=== PATIENT | male | born 1985 | race Two or more races ===

== ENCOUNTER 2017-08-14 21:35 | Emergency (ER) | payer SELFPAY ==
[2017-08-14 21:41] VITALS: BMI 26.9
--- NOTE | 2017-08-14 21:44 | PDOC ---
Rapid Medical Evaluation Time Seen by Provider: 08/14/17 21:38 Medical Evaluation: 08/14/17 21:39 The patient presents with a chief complaint of: Stomach pain for 2 days. Points to middle for stomach pain. admits to nausea, vomiting. Admits drinking, 2 drinks yesterday, smokes synthetic TCH daily I have performed a brief in-person evaluation of this patient; Pertinent physical exam findings: TTP epigastric region I have ordered the following: CBC, CMP, Lipase, Pt/INR,. UA, UC The patient will proceed to the ED for further evaluation.
[2017-08-14 22:01] LABS: BASO % 0.4 % (0-2.0); EOS % 3.2 % (0-4.5); HEMATOCRIT 52.2 % (35.4-49); HEMOGLOBIN 17.5 GM/dL (11.7-16.9); LYMPH % 10.4 % (8-40); MCH 29.1 pg (25.7-33.7); MCHC 33.4 g/dl (32.0-35.9); MEAN CELL VOLUME 86.9 fl (80-96); MEAN PLT VOLUME 9.1 fl (7.5-11.1); PLATELET COUNT 163 K/MM3 (134-434); RBC 6.01 M/mm3 (4.00-5.60); RDW 12.8 % (11.9-15.9); WHITE BLOOD COUNT 9.5 K/mm3 (4.0-10.0)
[2017-08-14 22:09] LABS: URINE APPEARANCE CLOUDY; URINE BILIRUBIN NEGATIVE (NEGATIVE); URINE BLOOD NEGATIVE (NEGATIVE); URINE COLOR AMBER; URINE GLUCOSE (UA) NEGATIVE (NEGATIVE); URINE KETONE NEGATIVE (NEGATIVE); URINE LEUK ESTERASE NEGATIVE (NEGATIVE); URINE NITRITE NEGATIVE (NEGATIVE)
[2017-08-14 22:12] LABS: INR 1.05 (0.82-1.09); PROTHROMBIN TIME (PATIENT) 11.9 SEC (9.98-11.88)
[2017-08-14 22:12] LABS: URINE PROTEIN 1+ (NEGATIVE)
[2017-08-14 22:14] LABS: EPI CELLS RARE /HPF (FEW); URINE MUCUS RARE
[2017-08-14] MEDS ORDERED: SODIUM CHLORIDE 1,000 ML IV STA ×2 (22:24→23:02)
[2017-08-14] MEDS ORDERED: ONDANSETRON 4 MG/2 ML VIAL IVPUSH ONE (22:24)
[2017-08-14 22:26] LABS: ALBUMIN 4.1 g/dl (3.4-5.0); ANION GAP 5 (8-16); BLOOD UREA NITROGEN 18 mg/dL (7-18); CALCIUM 9.3 mg/dL (8.5-10.1); CHLORIDE 103 mmol/L (98-107); CO2 31 mmol/L (21-32); CREATININE 1.1 mg/dL (0.7-1.3); GLUCOSE,RANDOM 77 mg/dL (74-106); SGOT/AST 15 U/L (15-37); SGPT/ALT 32 U/L (12-78); SODIUM 139 mmol/L (136-145)
[2017-08-14] MEDS ORDERED: FAMOTIDINE IV 20 MG/12 ML VIAL IVPB ONE (22:26)
--- NOTE | 2017-08-14 22:28 | PDOC ---
History of Present Illness - General Chief Complaint: Pain Stated Complaint: VOMITING, ABDOMINAL PAIN Time Seen by Provider: 08/14/17 21:38 Past History - Past Medical History Allergies/Adverse Reactions: Allergies Allergy/AdvReac Type Severity Reaction Status Date / Time No Known Allergies Allergy Verified 08/14/17 21:42 Home Medications: Ambulatory Orders Ondansetron [Zofran Odt -] 4 mg SL TID #10 od.tablet 08/15/17 COPD: No - Suicide/Smoking/Psychosocial Hx Smoking History: Never smoked Have you smoked in the past 12 months: No Information on smoking cessation initiated: No Hx Alcohol Use: Yes Drug/Substance Use Hx: No Substance Use Type: Alcohol *Physical Exam - Vital Signs Last Vital Signs Temp Pulse Resp BP Pulse Ox 97.6 F 78 20 140/74 97 08/14/17 21:38 08/14/17 21:38 08/14/17 21:38 08/14/17 21:38 08/14/17 21:38 ED Treatment Course - LABORATORY CBC & Chemistry Diagram: 08/14/17 21:50 08/14/17 21:50 - ADDITIONAL ORDERS Additional order review: Laboratory Results 08/14/17 08/14/17 22:00 21:50 Lipase 69 L Urine Color Heide Urine Appearance Cloudy Urine pH 7.0 Ur Specific Catarina 1.029 Urine Protein 1+ H Urine Glucose (UA) Negative Urine Ketones Negative Urine Blood Negative Urine Nitrite Negative Urine Bilirubin Negative Urine Urobilinogen 2.0 Urine WBC (Auto) 7 Urine RBC (Auto) 8 Ur Epithelial Cells Rare Urine Mucus Rare 08/14/17 21:50 RBC 6.01 H MCV 86.9 MCHC 33.4 RDW 12.8 MPV 9.1 Neutrophils % 78.0 Lymphocytes % 10.4 Monocytes % 8.0 Eosinophils % 3.2 Basophils % 0.4 *DC/Admit/Observation/Transfer Diagnosis at time of Disposition: Nausea & vomiting Qualifiers: Vomiting type: unspecified Vomiting Intractability: non-intractable Qualified Code(s): R11.2 - Nausea with vomiting, unspecified - Discharge Dispostion Disposition: HOME Condition at time of disposition: Good Admit: No - Referrals Referrals: Clayton Perry MD [Staff Physician] - - Patient Instructions Printed Discharge Instructions: DI for Vomiting -- Adult Additional Instructions: Your lab work today showed you're dehydrated. Please drink plenty of fluids including water, watered down Gatorade or fruit juices. Your prescribed Zofran as needed for nausea. He may take this medication every 8 hours as needed. Please eat a bland diet including plain toast, applesauce, bananas and plain rice. Please follow-up with your primary care doctor. If you do not have a primary care doctor a referral has been provided for you. Return to the emergency department if you have fevers, increased pain, worsening of your symptoms, lightheadedness, dizziness, or any changes in your symptoms. - Post Discharge Activity Forms/Work/School Notes: Back to Work
[2017-08-14 22:29] LABS: ALK PHOS 67 U/L (45-117); BILIRUBIN,TOTAL 0.8 mg/dL (0.2-1.0); TOT PROT 8.3 g/dl (6.4-8.2)
[2017-08-14 22:38] LABS: COCAINE, UR NEGATIVE ng/ml (CUTOFF=300); OPIATES, URI NEGATIVE ng/ml (CUTOFF=300); URINE AMPHETAMINES NEGATIVE ng/ml (CUTOFF=500); URINE BARBITURATES NEGATIVE ng/ml (CUTOFF=200); URINE BENZODIAZEPINES NEGATIVE ng/ml (CUTOFF=200)
[2017-08-14 22:39] LABS: METHADONE, UR NEGATIVE ng/ml (CUTOFF=300); PHENCYCLIDINE,URINE NEGATIVE ng/ml (CUTOFF=25)
[2017-08-14] MEDS ORDERED: ONDANSETRON 4 MG/2 ML VIAL ONE (22:54)
[2017-08-14] MEDS ORDERED: FAMOTIDINE 20 MG/50 ML IVPB 20 MG/50 ML MG IVPB ONE (22:55)
[2017-08-15 00:20] VITALS: BP 138/72; PULSE 76; TEMP 97.4
== END 2017-08-15 00:08 | disposition home or self-care (01) ==
LOC: JER 21:35
PROC: 3E033GC Introduction of Other Therapeutic Substance into Peripheral Vein, Percutaneous Approach (ICD-10-PCS; principal; 2017-08-14)
PROC: 3E033GC Introduction of Other Therapeutic Substance into Peripheral Vein, Percutaneous Approach (ICD-10-PCS; 2017-08-14)
DX: E86.0 Dehydration (principal); R11.2 Nausea with vomiting, unspecified
CPT/HCPCS: 36415; 80053; 80307; 81003; 81015; 83690; 85025; 85610; 87086; 99282-25